=== PATIENT | female | born 1950 | race Caucasian/White ===

== ENCOUNTER → 2016-05-05 | Day surgery (SDC) | payer OTHER ==
[~2016-05-05] VITALS: Ht 167.6 cm; Wt 72.6 kg
[~2016-05-05] MED LIST: AUGMENTIN1 TA1 PO; DICLOFENAC SODI75 M2 PO; ESTRACE 1MG TABL1 MG PO; FOSAMAX70 MG PO; INSULIN GL100 UNITS/ SC; MOTRIN 600MG.600 MG PO; OMEPRAZOLE20 MG PO; PERCOCET1 TAB PO; PROGESTERONE200 M1 PO; PROGESTERONE200 MG PO; SIMVASTATIN40 MG PO; VENLAFAXINE HYD75 MG PO; XIGDUO PO; ZOLEDRONIC5 MG/100 M IV
[2016-05-05 10:16] VITALS: BP 138/73
[2016-05-05 10:45] VITALS: BP 127/81; BP 138/73
--- NOTE | 2016-05-05 10:53 | Procedure Note ---
Procedure detail Date of procedure: 05/05/16 Anesthesiologist: John edwards CRNA Complications: None Pre-procedure diagnosis: RIGHT sacroiliitis. Post-procedure diagnosis: Same. Indications for procedure: This patient is a pleasant 65-year-old white female who we are treating for neck pain and low back pain with lumbar radicular symptoms. She had a lumbar epidural steroid injection which gave her good benefit from her pain symptoms. She does have some residual pain again over her RIGHT SI joint. She is tender over her RIGHT SI joint. We will schedule her for RIGHT SI joint injection in April. She is also due for her Percocet 5 mg 3 times a day in April we will go ahead and write her her prescription today. Her Giovanni and urine drug screen are all appropriate. Procedure detail: Procedure: Right sacroliliac joint injection under fluoroscopy Informed consent was obtained and the risk and benefits of the procedure were explained to the patient.~ The patient was taken to the procedure room and noninvasive monitors were placed including noninvasive blood pressure cuff and pulse oximeter.~ The patient was placed prone on the procedure table.~ The~ right hip was cleansed using Betadine as a cleansing solution.~ C-arm fluorosocpy was used to view the right SI joint.~ The skin and subcutaneous tissues were anesthetized using Lidocaine 1.5% and a 25-gauge needle.~ After this, a 22-gauge spinal needle was inserted under fluoroscopic guidance into the inferior aspect of the right SI joint.~ Omnipaque dye was injected and a good spread was seen throughout the joint.~ After this, approximately 5 mL of bupivacaine 0.25% and Depo-Medrol 20 mg was incrementally injected into the sacroiliac joint.~ The patient tolerated the procedure well with no complications.~ The patient was observed in the Pain Clinic, then discharged home neurologically intact.~ Plan and disposition: Patient was evaluated to minutes post procedure. Patient reports 75 percent improvement terms her RIGHT hip pain. She'll continue to follow up with us in the pain clinic for further evaluation. at 2013
[2016-05-05 11:00] VITALS: BP 135/78
== END ==
LOC: PM 04-21 10:30
PROC: 3E0U33Z Introduction of Anti-inflammatory into Joints, Percutaneous Approach (ICD-10-PCS; principal; 2016-05-05)
PROC: 3E0U3BZ Introduction of Anesthetic Agent into Joints, Percutaneous Approach (ICD-10-PCS; 2016-05-05)
DX: M46.1 Sacroiliitis, not elsewhere classified (principal)
CPT/HCPCS: G0260; J1030

== ENCOUNTER → 2016-11-13 | Outpatient (CLI) | payer OTHER, MEDICARE ==
[2016-11-13 12:20] VITALS: BP 112/70
== END ==
LOC: COP 11:00
DX: M81.0 Age-related osteoporosis without current pathological fracture (principal)
CPT/HCPCS: J0897